=== PATIENT | female | born 1970 | race Two or more races ===

== ENCOUNTER 2018-09-15 19:32 | Emergency (ER) | payer MEDICAID, SELFPAY ==
[~2018-09-15] VITALS: Ht 167.6 cm; Wt 72.1 kg
--- NOTE | 2018-09-15 20:11 | PHYS DOC ---
Past Medical History Past Medical History: Diabetes-Type II, Kidney Stone (TRISTEN HARRISON APRN) Past Surgical History: Other Additional Past Surgical Histo: kidney stone (TRISTEN HARRISON APRN) Alcohol Use: None Drug Use: None (TRISTEN HARRISON APRN) Adult General Chief Complaint Chief Complaint: ABDOMINAL PAIN HPI HPI Patient is a 47 year old [f] who presents with [3 day history of abdominal pain. Patient reports she has not had a bowel movement since Tuesday, 3 days ago. Patient reports the pain is seemingly a little bit worse every day. Patient reports she feels that she has to go but just nothing comes out. Patient also reports she had been diagnosed with a UTI approximately 3 days ago as well, had just started on Cipro yesterday has taken 3 doses so far. Reports the discomfort to her left leg. Patient denies nausea, denies history of prior abdominal concerns. Does report she has had decreased appetite, has been drinking fluids. Patient does report history of a cholecystectomy. No other abdominal surgeries. Reports her last menstrual cycle was approximately one week ago. Reports pain is mostly constant on her left lower quadrant, which has expanded motors her rib cage over the last day. Does say she did try some MiraLAX today, has not had any success thus. Patient does report she is a diabetic and has been monitoring her blood sugar, maintains her blood sugar well controlled. Last A1c was 6.8.] (TRISTEN HARRISON APRN) Review of Systems Review of Systems Constitutional: Denies fever or chills [] Eyes: Denies change in visual acuity, redness, or eye pain [] HENT: Denies nasal congestion or sore throat [] Respiratory: Denies cough or shortness of breath [] Cardiovascular: No additional information not addressed in HPI [] GI: Denies nausea, vomiting, bloody stools or diarrhea reports constipation, abdominal pain : Denies dysuria or hematuria [] Musculoskeletal: Denies back pain or joint pain [] Integument: Denies rash or skin lesions [] Neurologic: Denies headache, focal weakness or sensory changes [] Endocrine: Denies polyuria or polydipsia [] All other systems were reviewed and found to be within normal limits, except as documented in this note. (TRISTEN HARRISON APRN) Current Medications Current Medications Current Medications Medications (Trade) Dose Ordered Sig/Camila Start Time Stop Time Status Last Admin Dose Admin Magnesium Citrate (Citroma) 296 ml 1X ONCE 09/15/18 22:00 09/15/18 22:01 DC 09/15/18 22:02 296 ML (RUMA REID DO) Allergies Allergies Allergies Coded Allergies Type Severity Reaction Last Updated Verified No Known Drug Allergies 09/15/18 No (RUMA REID DO) Physical Exam Physical Exam Constitutional: Well developed, well nourished, no acute distress, non-toxic appearance. [] HENT: Normocephalic, atraumatic, bilateral external ears normal, oropharynx bob st, no oral exudates, nose normal. [] Eyes: PERRLA, EOMI, conjunctiva normal, no discharge. [] Neck: Normal range of motion, no tenderness, supple, no stridor. [] Cardiovascular:Heart rate regular rhythm, no murmur [] Lungs & Thorax: Bilateral breath sounds clear to auscultation [] Abdomen: Bowel sounds decreased overall., soft, no tenderness, no masses, no pulsatile masses. Abdomen mildly distended.[] Skin: Warm, dry, no erythema, no rash. No lesions noted[] Back: No tenderness, no CVA tenderness. [] Extremities: No tenderness, no cyanosis, no clubbing, ROM intact, no edema. [] Neurologic: Alert and oriented X 3, normal motor function, normal sensory function, no focal deficits noted. [] Psychologic: Affect normal, judgement normal, mood normal. [] (TRISTEN HARRISON APRN) Current Patient Data Vital Signs Vital Signs Date Time Temp Pulse Resp B/P (MAP) Pulse Ox O2 Delivery O2 Flow Rate FiO2 09/15/18 21:13 83 16 148/87 (107) 98 Room Air 09/15/18 19:35 98.5 98.5 (RUMA REID DO) Lab Values Laboratory Tests Test 09/15/18 19:53 POC Urine HCG, Qualitative Hcg negative (Negative) (RUMA REID DO) EKG EKG [] (TRISTEN HARRISON APRN) Radiology/Procedures Radiology/Procedures Dr Reid reviews, noted large amount of generalized stool throughout abdomen. [] (TRISTEN HARRISON APRN) Course & Med Decision Making Course & Med Decision Making Pertinent Labs and Imaging studies reviewed. (See chart for details) [Discussed with patient x-ray versus CT scan. Patient agrees to just have an x- ray done at this time, to evaluate for obstruction or constipation. Patient advised of x-ray is unremarkable when may need to be CT scan to further rule out diverticulitis or other obstruction symptoms. Patient in agreement with this plan of care. Discussed findings on KUB, with large amount of stool, discussed constipation as cause for discomfort and abdominal swelling. Discussed treatment with Mag Citrate, suppository, and if no success, use of Enema at home. Patient and family in agreement with plan of care. Patient to continue taking her Cipro for her UTI previously diagnosed] (TRISTEN HARRISON APRN) Dragon Disclaimer Dragon Disclaimer This electronic medical record was generated, in whole or in part, using a voice recognition dictation system. (TRISTEN HARRISON APRN) Departure Departure Impression: Primary Impression: Constipation Additional Impression: Abdominal pain Disposition: HOME, SELF-CARE Condition: GOOD Patient Instructions: Constipation, Adult, [id number], Hydrocortisone rectal enema Additional Instructions: As we discussed, use the bottle of magnesium citrate. Makes one half bottle with one half can of Sprite. During this. If no results within one hour, drink the remaining half the bottle with additional Sprite. If this does not work, he should use the suppositories. If he continued to not have a bowel movement tomorrow, go to the store and purchased a mineral oil enema kit. When he use this, makes it according to the package directions. Lay on your left side into your rectum and attempt to hold the Levaquin as long as he can before you have to have a bowel movement. Continue taking her antibiotic Cipro producing taking for your urinary tract infection. Follow up with her primary care provider as needed .. Scripts Bisacodyl (DULCOLAX) 10 Mg Supp.rect 10 MG RC PRN DAILY PRN for CONSTIPATION, #5 SUPP.RECT 0 Refills Prov: TRISTEN HARRISON APRN 09/15/18 Attending Signature Attending Signature I have reviewed the PA/IRRIGATOR VALVE PIPE's note and plan of care. I was available for consultation as needed during the patient's visit in the emergency department. I agree with the clinical impression, plan, and disposition. (RUMA REID DO) Problem Qualifiers Primary Impression: Constipation Constipation type: unspecified constipation type Qualified Codes: K59.00 - Constipation, unspecified Additional Impression: Abdominal pain Abdominal location: generalized Qualified Codes: R10.84 - Generalized abdominal pain TRISTEN HARRISON APRN September 15, 2018 20:11 RUMA REID DO Sep 16, 2018 04:08
[2018-09-15 21:13] VITALS: BP 148/87
[2018-09-15] MEDS ORDERED: BISA10SU55 RC (21:50)
[2018-09-15] MEDS ORDERED: MAGNESIUM CITRATE 296 ML SOLUTION. PO ONE (22:00)
--- NOTE | 2018-09-16 00:23 | RAD ---
AP abdomen radiograph 09/15/2018 CLINICAL HISTORY: Abdominal pain and constipation. An AP supine portable digital radiograph of the abdomen/pelvis was obtained. Surgical clips overlie the right quadrant abdomen consistent with a cholecystectomy. The abdominal bowel gas pattern is nonobstructive. A moderate to large amount of stool is seen throughout the colon. No radiopaque calculus is seen. The osseous structures are grossly intact. IMPRESSION: Nonobstructive bowel gas pattern. A moderate to large amount of stool is seen throughout the colon. Electronically signed by: Jose Eller MD (09/16/2018 12:21 AM) [facility]
== END 2018-09-15 22:01 | disposition home or self-care (01) ==
LOC: ER 19:32
DX: K59.00 Constipation, unspecified (principal); R10.84 Generalized abdominal pain; M79.605 Pain in left leg; E11.9 Type 2 diabetes mellitus without complications; Z87.442 Personal history of urinary calculi
CPT/HCPCS: 74018; 81025; 99284